=== PATIENT | female | born 1950 | race Caucasian/White ===

== ENCOUNTER 2017-04-20 08:26 | Outpatient (CLI) | payer MEDICARE, BC ==
[2017-04-20 10:33] LABS: #Eosinphils 0.2 thou/uL (0.0-0.7); #Lymphocytes 2.1 thou/uL (1.20-3.40); #Monocytes 0.5 thou/uL (0.11-0.59); #Neutrophils 2.9 thou/uL (1.40-6.50); %Basophils 0.8 % (0.0-1.0); %Eosinophils 3.3 % (0.0-10.0); %Lymphocytes 36.8 % (21.0-51.0); %Monocytes 8.8 % (0.0-10.0); Hematocrit 40.5 % (36.0-47.0); Mean Platelet Volume 7.6 fL (7.4-10.4); Red Blood Cell (RBC) Count 4.52 mill/uL (4.20-5.40); White Blood Cell (WBC) Count 5.7 thou/uL (4.8-10.8)
[2017-04-20 10:41] LABS: PTT 29.9 SEC (22.9-36.1); Prothrombin Time 12.5 SEC (12.0-14.7)
[2017-04-20 10:46] LABS: Anion Gap 12 mmol/L (10-20); BUN (Urea Nitrogen) 14 mg/dL (9.8-20.1); Calc. Creatinine Clearance 0 mL/min (70-130); Calcium 10.3 mg/dL (7.8-10.44); Carbon Dioxide 31 mmol/L (23-31); Chloride 98 mmol/L (98-107); Estimated GFR-MDRD 68
[2017-04-20 13:30] LABS: Bilirubin Negative (Negative); Blood, Urine Negative (Negative); Glucose, Urine (Dipstick) Negative (Negative); Ketone, Urine Negative (Negative); Nitrite Negative (Negative); Protein, Urine (Dipstick) Negative (Neg-Trace); Urobilinogen 0.2 mg/dL (0.2-1.0)
[2017-04-20 13:33] LABS: Bacteria/HPF None Seen HPF (None Seen); Hyaline Casts/LPF 0-3 HYALINE CAST LPF (0-3 Hyaline); RBC/HPF 0-3 HPF (0-3); Squamous Epithelial 0-3 HPF (0-3); WBC/HPF 0-3 HPF (0-3)
--- NOTE | 2017-04-20 14:37 | RAD ---
PA AND LATERAL CHEST: Date: 04-20-17 History: Pre-operative evaluation. Comparison: 06-10-10 FINDINGS: Cardiac silhouette and pulmonary vasculature are within normal limits. Lungs are clear. Vascular tanisha cifications are seen in a tortuous thoracic aorta. There is mild right convex scoliosis of the thora cic spine with degenerative changes in the thoracic spine. A left glenohumeral prosthesis is present . No other interval change. IMPRESSION: No acute cardiopulmonary process. POS: [facility]
--- NOTE | 2017-04-20 15:04 | EKG ---
Test Reason : Blood Pressure : / mmHG Vent. Rate : 082 BPM Atrial Rate : 082 BPM P-R Int : 166 ms QRS Dur : 086 ms QT Int : 364 ms P-R-T Axes : 076 023 072 degrees QTc Int : 425 ms Normal sinus rhythm Cannot exclude Inferior infarct , age undetermined Abnormal ECG Confirmed by DEO MCINTYRE ([id number]) on 04/20/2017 3:03:28 PM Referred By: SIRIA STOVALL Confirmed By:DEO MCINTYRE
== END 2017-04-20 08:27 | disposition home or self-care (01) ==
LOC: LABBT 08:26
PROVIDERS: ATTEND Orthopaedic Surgery
DX: Z01.818 Encounter for other preprocedural examination (principal); M16.11 Unilateral primary osteoarthritis, right hip
CPT/HCPCS: 71020; 80048; 81001; 85025; 85610; 85730; 86850; 86900; 86901; 87081; 93005; 93010

== ENCOUNTER 2017-04-20 08:30 | Inpatient (IN) | payer MEDICARE, BC ==
[2017-04-20 08:45] VITALS: BMI 34.2
[2017-04-20 10:33] LABS: #Eosinphils 0.2 thou/uL (0.0-0.7); #Lymphocytes 2.1 thou/uL (1.20-3.40); #Monocytes 0.5 thou/uL (0.11-0.59); #Neutrophils 2.9 thou/uL (1.40-6.50); %Basophils 0.8 % (0.0-1.0); %Eosinophils 3.3 % (0.0-10.0); %Lymphocytes 36.8 % (21.0-51.0); %Monocytes 8.8 % (0.0-10.0); Hematocrit 40.5 % (36.0-47.0); Mean Platelet Volume 7.6 fL (7.4-10.4); Red Blood Cell (RBC) Count 4.52 mill/uL (4.20-5.40); White Blood Cell (WBC) Count 5.7 thou/uL (4.8-10.8)
[2017-04-20 10:41] LABS: PTT 29.9 SEC (22.9-36.1); Prothrombin Time 12.5 SEC (12.0-14.7)
[2017-04-20 10:46] LABS: Anion Gap 12 mmol/L (10-20); BUN (Urea Nitrogen) 14 mg/dL (9.8-20.1); Calc. Creatinine Clearance 0 mL/min (70-130); Calcium 10.3 mg/dL (7.8-10.44); Carbon Dioxide 31 mmol/L (23-31); Chloride 98 mmol/L (98-107); Estimated GFR-MDRD 68
[2017-04-20 13:30] LABS: Bilirubin Negative (Negative); Blood, Urine Negative (Negative); Glucose, Urine (Dipstick) Negative (Negative); Ketone, Urine Negative (Negative); Nitrite Negative (Negative); Protein, Urine (Dipstick) Negative (Neg-Trace); Urobilinogen 0.2 mg/dL (0.2-1.0)
[2017-04-20 13:33] LABS: Bacteria/HPF None Seen HPF (None Seen); Hyaline Casts/LPF 0-3 HYALINE CAST LPF (0-3 Hyaline); RBC/HPF 0-3 HPF (0-3); Squamous Epithelial 0-3 HPF (0-3); WBC/HPF 0-3 HPF (0-3)
[2017-04-27] MEDS ORDERED: HYDROcodone/Acetaminophen 10/325 mg Tablet PO PRN ×2 (06:57)
[2017-04-27] MEDS ORDERED: Promethazine HCl 25 MG/ML VIAL IM PRN ×2 (06:57→08:45)
[2017-04-27] MEDS ORDERED: Zolpidem Tartrate 5 MG TAB PO PRN ×2 (06:57→08:45)
[2017-04-27] MEDS ORDERED: diphenhydrAMINE 25 MG CAP PO PRN ×3 (06:57→08:45)
[2017-04-27] MEDS ORDERED: traMADol HCl 50 MG TAB PO PRN ×3 (06:57→08:45)
[2017-04-27] MEDS ORDERED: Acetaminophen 325 MG TAB PO PRN (06:57)
[2017-04-27] MEDS ORDERED: Ondansetron HCl/PF 4 MG/2 ML Vial IVP PRN ×2 (06:57→08:45)
[2017-04-27] MEDS ORDERED: Fentanyl 100 MCG/2 ML VIAL SLOW IVP PRN ×2 (06:57)
[2017-04-27] MEDS ORDERED: TRANEXAMIC ACID IVPB SCH (07:00)
[2017-04-27] MEDS ORDERED: ADMIXTURE FEE IVPB SCH (07:00)
[2017-04-27] MEDS ORDERED: SODIUM CHLORIDE IVPB SCH (07:00)
[2017-04-27] MEDS ORDERED: Tranexamic Acid 1,000 MG/100 ML BAG ONE ×2 (07:11→13:46)
[2017-04-27] MEDS ORDERED: Eucerin (Mineral Oil/Petrolatum,White) 30 gm Jar TOP PRN (08:45)
[2017-04-27] MEDS ORDERED: Naloxone HCl 0.4 mg/ml Vial IVP PRN (08:45)
[2017-04-27] MEDS ORDERED: diphenhydrAMINE 50 MG/ML VIAL IVP PRN (08:45)
[2017-04-27] MEDS ORDERED: HYDROcodone/Acetaminophen 5/325 mg Tablet PO PRN (08:45)
[2017-04-27] MEDS ORDERED: diphenhydrAMINE 50 MG/ML VIAL IM PRN (08:45)
[2017-04-27] MEDS ORDERED: Naloxone HCl 0.4 mg/ml Vial IV PRN (08:45)
[2017-04-27] MEDS ORDERED: Bupivacaine 0.25% 10 ML VIAL EPIDURAL PRN (08:45)
[2017-04-27] MEDS ORDERED: Fentanyl/Bupivacaine 250 ML in Premix Bag 1 BAG EPIDURAL SCH (08:45)
[2017-04-27] MEDS ORDERED: Promethazine HCl 25 MG SUPP PR PRN (08:45)
[2017-04-27] MEDS ORDERED: Ketorolac Tromethamine 30 MG/ML VIAL IVP PRN (08:45)
[2017-04-27] MEDS ORDERED: Ropivacaine 0.2% HCl/PF 20 ML ONE (08:55)
[2017-04-27] MEDS ORDERED: Fentanyl 100 MCG/2 ML VIAL ONE (08:55)
[2017-04-27] MEDS ORDERED: Midazolam HCl 2 mg/2 ml Vial ONE (08:55)
[2017-04-27] MEDS ORDERED: Non-Formulary Item 1 EACH (Omeprazole [Omeprazole] 20 MG) PO SCH (09:00)
[2017-04-27] MEDS ORDERED: Glimepiride 2 MG TAB PO SCH (09:00)
[2017-04-27] MEDS ORDERED: Hydrochlorothiazide 25 MG TAB PO SCH (09:00)
[2017-04-27] MEDS ORDERED: Ondansetron HCl/PF 4 MG/2 ML Vial ONE (09:10)
[2017-04-27] MEDS ORDERED: Lidocaine 2% PF 10 ML AMP (For Epidural Use) ONE (09:10)
[2017-04-27] MEDS ORDERED: Propofol 200 MG/20 ML VIAL ONE (09:10)
[2017-04-27] MEDS ORDERED: PHENYLEPHRINE-NS 100 MCG/ML 10 ML SYRINGE ONE ×2 (09:10→11:34)
[2017-04-27] MEDS ORDERED: Dexamethasone 20 MG/5 ML VIAL ONE (09:10)
[2017-04-27 11:14] LABS: Hematocrit 31.2 % (36.0-47.0)
[2017-04-27] MEDS ORDERED: Tranexamic Acid 1,000 MG in Sodium Chloride 0.9% 100 ML IVPB SCH (11:30)
--- NOTE | 2017-04-27 12:06 | OP ---
DATE OF PROCEDURE: 04/27/2017 PREOPERATIVE DIAGNOSIS: End-stage bicompartmental osteoarthritis, right hip. POSTOPERATIVE DIAGNOSIS: End-stage bicompartmental osteoarthritis, right hip. PROCEDURE: Press-Fit right total hip arthroplasty. SURGEON: Jimbo Singer M.D. INDUSTRIAL ARTS TEACHER: Moustapha Bird PA-C. ANESTHESIA: General via endotracheal tube augmented with indwelling epidural. COMPONENTS USED: [facility], Accolade press fit size 2 hip stem with a 48 mm press fit buzz tabular shell, 36 mm 0 degree polyethylene fixed bearing insert and a 36 mm V40 -5 offset metallic f emoral head. ESTIMATED BLOOD LOSS: 600 mL FINDINGS: End-stage severe degenerative bicompartmental disease, bone on bone arthrosis, periarticu lar osteophyte formation, a lot of serous effusions. DRAINS: None. SPECIMENS: None. COMPLICATIONS: None. COUNTS: Correct. INDICATIONS FOR SURGERY: Shirley is a 66-year-old white female who has had progressive right hip, baron in and thigh pain amplified with standing and walking for the last 5 cm, she has failed conservative management and elected to proceed with total hip arthroplasty as a definitive treatment to her pain . PROCEDURE IN DETAIL: After informed consent was obtained in the preoperative holding area, the ghanshyam ent was taken to the operative suite where general anesthesia was induced. The patient was then pos itioned in the lateral decubitus position. The hip was then prepped and draped in usual sterile fas hion. The patient received preoperative antibiotics. Prior to incision, time-out was called and al l members of the surgical team agreed upon site, surgeon, and patient. After this, a longitudinal i ncision was made directly over the trochanter, noted by palpation extending 2 fingerbreadths above a nd below the trochanter. The deeper subcutaneous layer was undermined with Bovie electrocautery. T he iliotibial band was encountered and incised sharply and the plane below this was developed bluntl y. A Charnley retractor was placed to hold this opened. The lateral aspect of the trochanter and t he abductor muscles were encountered and then reflected anteriorly off the trochanter using Bovie el ectrocautery. Once this was completed, the anterior capsule was then encountered and identified and copious capsulotomy was carried out, exposing the femoral neck and head. Dislocation maneuver was t hen performed and an in situ provisional neck cut was then made using the oscillating saw. Attentio n was then turned to acetabular preparation and sequential reaming was carried out up to the appropr iate diameter and a trial was then malleted into place with good firm resistance and no pullout. Th e permanent acetabular shell was then malleted squarely into place, as was the appropriate liner. O nce completed, the wound was copiously irrigated and attention was then turned to femoral preparatio n. Flexion and external rotation was performed of the exposed thigh and femoral elevators were then placed at the proximal aspect of the wound. Canal finder was used to establish the length of the ca nal and sequential reaming was carried out, followed by broaching. Once the appropriate stability w as established with the trial broaches with both flexion, extension and rotational stability, we did trial with neutral and 2 mm offset incremental necks. Once the appropriate size was decided upon, with good stability noted with flexion, extension, internal and external rotation and shuck being ne gative, we removed the femoral trial broach and malletted into place the permanent prosthesis with g ood firm fit, which was also stable to rotation. Again, the hip felt very stable to flexion, extens ion, internal and external rotation. Leg lengths appeared near anatomic clinically and we were quit e happy with prosthesis placement. Copious irrigation was then carried out through the entirety of the wound. Primary closure of the abductors was accomplished with interrupted #2 Vicryl figure-of-e ight stitches and the IT band was then closed with interrupted #2 Vicryl, oversewn with a #2 running barbed Quill stitch. Subcutaneous fascia was closed with running barbed Quill stitch and a subcuti cular Monocryl barbed Quill stitch was used for skin closure and augmented with skin cement. A ster ile dressing was applied. The procedure was terminated without any complication. All counts were co rrect. The patient was awakened in the operative suite and taken to the recovery room in stable con dition.
[2017-04-27] MEDS ORDERED: ePHEDrine/0.9% NaCl/PF SYRINGE 50 mg/10 ml ONE (12:23)
[2017-04-27] MEDS ORDERED: Fentanyl/Bupivacaine 250 ML EPIDURAL ONE (13:04)
--- NOTE | 2017-04-27 13:06 | RAD ---
2 VIEWS OF THE RIGHT HIP: Date: 04/27/17 INDICATION: Right total hip replacement. COMPARISON: None. FINDINGS: There is a right total hip prosthesis that projects in the expected position without gross evidence of complication. There is scattered periarticular soft tissue gas consistent with patient's recent p ostop state. Surgical clips are seen within the right inguinal region, likely related to prior vascu lar surgery. IMPRESSION: Right total hip arthroplasty. POS: [facility]
[2017-04-27 14:17] LABS: Hematocrit 28.5 % (36.0-47.0)
[2017-04-27] MEDS ORDERED: Calcium Chloride 1 GM/10 ML Abboject SYRINGE ONE (16:13)
[2017-04-27] MEDS ORDERED: CEFAZOLIN/Water 2 GM/20 ML SYRINGE ONE (17:06)
[2017-04-27] MEDS ORDERED: Ketorolac Tromethamine 30 MG/ML VIAL ONE (17:12)
[2017-04-27] MEDS: Sodium Chloride 0.9% 1,000 ML IV SCH ×2 (18:16→21:32)
[2017-04-27 18:33] LABS: Hematocrit 33.4 % (36.0-47.0)
[2017-04-27] MEDS: HYDROcodone/Acetaminophen 5/325 mg Tablet PO PRN (19:09)
[2017-04-27] MEDS ORDERED: METFORMIN HCL PO SCH (21:00)
[2017-04-27] MEDS: Aspirin 325 MG TAB PO SCH (21:24)
[2017-04-27] MEDS: Ferrous Gluconate 324 MG TAB PO SCH (21:25)
[2017-04-27] MEDS: Senokot S 8.6-50 MG TAB PO SCH (21:25)
[2017-04-27] MEDS: metFORMIN XR 500 MG TAB PO SCH (21:26)
[2017-04-28] MEDS: CEFAZOLIN/Water 2 GM/20 ML SYRINGE SLOW IVP SCH ×3 (01:15→08:22)
[2017-04-28] MEDS: HYDROcodone/Acetaminophen 5/325 mg Tablet PO PRN ×4 (01:19→20:23)
[2017-04-28] MEDS: Sodium Chloride 0.9% 1,000 ML IV SCH ×3 (04:15→21:54)
[2017-04-28 06:50] LABS: Hematocrit 28.7 % (36.0-47.0); Mean Platelet Volume 7.7 fL (7.4-10.4); Red Blood Cell (RBC) Count 3.14 mill/uL (4.20-5.40); White Blood Cell (WBC) Count 7.7 thou/uL (4.8-10.8)
[2017-04-28] MEDS: Multivitamin W/ Minerals 1 TAB PO SCH ×2 (08:18→08:21)
[2017-04-28] MEDS: Senokot S 8.6-50 MG TAB PO SCH ×3 (08:18→20:19)
[2017-04-28] MEDS: Aspirin 325 MG TAB PO SCH ×3 (08:18→20:18)
[2017-04-28] MEDS: Ferrous Gluconate 324 MG TAB PO SCH ×3 (08:18→20:18)
[2017-04-28] MEDS: Hydrochlorothiazide 25 MG TAB PO SCH ×2 (08:19→09:00)
[2017-04-28] MEDS: Glimepiride 2 MG TAB PO SCH ×2 (08:19→08:21)
[2017-04-28] MEDS: metFORMIN XR 500 MG TAB PO SCH (20:18)
[2017-04-29] MEDS: HYDROcodone/Acetaminophen 5/325 mg Tablet PO PRN (06:28)
[2017-04-29 06:40] LABS: Hematocrit 28.5 % (36.0-47.0); Mean Platelet Volume 7.5 fL (7.4-10.4); Red Blood Cell (RBC) Count 3.11 mill/uL (4.20-5.40); White Blood Cell (WBC) Count 6.3 thou/uL (4.8-10.8)
[2017-04-29] MEDS: Ferrous Gluconate 324 MG TAB PO SCH ×2 (08:13→20:52)
[2017-04-29] MEDS: Hydrochlorothiazide 25 MG TAB PO SCH (08:13)
[2017-04-29] MEDS: Multivitamin W/ Minerals 1 TAB PO SCH (08:13)
[2017-04-29] MEDS: Senokot S 8.6-50 MG TAB PO SCH ×3 (08:13→20:52)
[2017-04-29] MEDS: Glimepiride 2 MG TAB PO SCH (08:13)
[2017-04-29] MEDS: Aspirin 325 MG TAB PO SCH ×2 (08:13→20:52)
[2017-04-29] MEDS: Sodium Chloride 0.9% 1,000 ML IV SCH ×2 (11:01→17:53)
[2017-04-29] MEDS: Acetaminophen 500 MG TAB PO PRN (12:47)
[2017-04-29] MEDS: metFORMIN XR 500 MG TAB PO SCH (20:52)
[2017-04-30] MEDS: Sodium Chloride 0.9% 1,000 ML IV SCH (04:09)
[2017-04-30 05:24] LABS: Hematocrit 28.4 % (36.0-47.0); Mean Platelet Volume 7.1 fL (7.4-10.4); Red Blood Cell (RBC) Count 3.18 mill/uL (4.20-5.40); White Blood Cell (WBC) Count 7.1 thou/uL (4.8-10.8)
[2017-04-30 07:56] VITALS: BP 145/80
[2017-04-30] MEDS: Aspirin 325 MG TAB PO SCH (08:55)
[2017-04-30] MEDS: Ferrous Gluconate 324 MG TAB PO SCH (08:55)
[2017-04-30] MEDS: Hydrochlorothiazide 25 MG TAB PO SCH (08:55)
[2017-04-30] MEDS: Multivitamin W/ Minerals 1 TAB PO SCH (08:55)
[2017-04-30] MEDS: Glimepiride 2 MG TAB PO SCH (08:58)
[2017-04-30] MEDS: Senokot S 8.6-50 MG TAB PO SCH (08:59)
[2017-04-30] MEDS: Acetaminophen 500 MG TAB PO PRN (09:02)
[2017-04-30 11:50] VITALS: TEMP 98.4
--- NOTE | 2017-05-03 09:47 | PQF ---
SAM CADET BARRY MD [id number] CLINICAL DOCUMENTATION CLARIFICATION FORM: POST DISCHARGE Addendum to original discharge summary date: ____ Late entry note date: __ DATE: 05/03/2017 ATTN: DR. STOVALL Please provide diagnosis for procedure that was done. Please exercise your independent, professional judgment in responding to the clarification form. Clinical indicators are provided on the bottom of this form for your review Please check appropriate box(s): [ ] Acute blood loss anemia [ ] Post-op anemia related to acute blood loss [ ] Anemia: [ ] Aplastic [ ] Nutritional [ ] Drug induced (specify) ___ [ ] Hemolytic [ ] Hereditary [ ] Acquired [ ] Autoimmune [ ] Non-autoimmune [ ] Enzyme disorder [ ] Chronic Anemia: [ ] Blood loss [ ] Hemolytic [ ] Simple [ ] Due to Vitamin B12 Deficiency [ ] Other [ ] Anemia of Chronic Disease (please specify) [ ] Anemia due to Neoplasm: [ ] Primary [ ] Secondary [ ] Anemia due to (please choose): [ ] Due to Chemotherapy [ ] Due to Radiotherapy [ ] Due to Immunotherapy [ ] Other diagnosis [ ] Unable to determine In addition, please specify: Present on Admission (POA): [ ] Yes [ ] No [ ] Unable to determine For continuity of documentation, please document condition throughout progress notes and discharge summary. Thank You. CLINICAL INDICATORS - SIGNS / SYMPTOMS / LABS H&H on 04/27- H&H ON 04/29- RISK FACTORS Total Hip Replacement on 04/27/2017 TREATMENTS: Transfusion of LRPC on 04/27 (This form is maintained as a part of the permanent medical record) 2014 [employer] All Rights Reserved [email or web address] [phone] MTDD
--- NOTE | 2017-05-03 10:51 | DIS ---
DATE OF ADMISSION: 04/27/2017 DATE OF DISCHARGE: 04/30/2017 PREOPERATIVE DIAGNOSES: Right hip osteoarthritis/degenerative joint disease. DISCHARGE DIAGNOSES: Right hip osteoarthritis/degenerative joint disease. PROCEDURE: The patient underwent a right total hip replacement. HOSPITAL COURSE: Hospital stay was fairly unremarkable. By postop day 2, she was a little bit tire d and did not feel so good, so we opted to keep the patient for another day. By postoperative day # 3, she was doing much better and ready for discharge. She had no other complications on the floor a nd again admitted to [address] where she worked with staff, physical therapy, occupat ional therapy, and did overall very well. DISCHARGE CONDITION: Stable. DISPOSITION: Home. FOLLOWUP: Followup would be in 3-4 weeks, sooner if there are problems or concerns. DISCHARGE MEDICATIONS: Given with usage instructions. This is Osiel Rosales PA-C dictating for Jimbo Singer M.D.
== END 2017-04-30 11:01 | disposition home or self-care (01) | DRG 470 ==
LOC: SURG A 04-27 06:25 → SJJU 04-27 12:59
PROVIDERS: ADMIT Orthopaedic Surgery; ATTEND Orthopaedic Surgery
PROC: 0SR902A Replacement of Right Hip Joint with Metal on Polyethylene Synthetic Substitute, Uncemented, Open Approach (ICD-10-PCS; principal; 2017-04-27)
PROC: 3E0T3BZ Introduction of Anesthetic Agent into Peripheral Nerves and Plexi, Percutaneous Approach (ICD-10-PCS; 2017-04-27)
PROC: 30233N1 Transfusion of Nonautologous Red Blood Cells into Peripheral Vein, Percutaneous Approach (ICD-10-PCS; 2017-04-27)
DX: M16.11 Unilateral primary osteoarthritis, right hip (principal); J44.9 Chronic obstructive pulmonary disease, unspecified; Z96.642 Presence of left artificial hip joint; I10 Essential (primary) hypertension; Z79.84 Long term (current) use of oral hypoglycemic drugs; E78.5 Hyperlipidemia, unspecified; K21.9 Gastro-esophageal reflux disease without esophagitis; Z87.891 Personal history of nicotine dependence; K58.9 Irritable bowel syndrome, unspecified; Z96.612 Presence of left artificial shoulder joint; Z96.651 Presence of right artificial knee joint; E11.9 Type 2 diabetes mellitus without complications
CPT/HCPCS: 36415; 36416; 80048; 81001; 85014; 85018; 85025; 85027; 85610; 85730; 86850; 86900; 86901; 87081; C1776; G8978-GP-CJ; G8979-GP-CI; G8987-GO-CK; G8988-GO-CI; J1100; J1885; J2001; J2250; J2405; J2704; J2795; J3010; J3370; P9016

== ENCOUNTER 2017-06-07 13:08 | Outpatient (CLI) | payer MEDICARE, BC ==
--- NOTE | 2017-06-07 15:36 | RAD ---
FIVE VIEWS CERVICAL SPINE: Indication: Cervical radiculopathy. Comparison: 02-23-17 FINDINGS: The severe multilevel disc degenerative facet osteoarthritic change of the cervical spine is stable. There is slight anterior translation of C2 on C3, C3 on C4, and C4 on C5 which is similar appearing. No abnormal translational motion is grossly evident. Lateral masses are symmetric. Lung apices are cl ear. IMPRESSION: Severe multilevel spondylosis of the cervical spine is stable to the prior. POS: [facility]
--- NOTE | 2017-06-07 15:52 | CT ---
CT OF THE CERVICAL SPINE WITHOUT CONTRAST: Indication: Cervical radiculopathy with inability to move neck since April 2017. Comparison: None. FINDINGS: The lateral masses are symmetric. There is slight anterior translation of C2 on C3 and C3 on C4 and C 4 on C5. There is advanced facet osteoarthrosis at C3-4 and C2-3. The lung apices are clear. C2-3: There is no appreciable osseous central canal or neural foraminal narrowing. There is advanced facet osteoarthritic change. C3-4: There is advanced right and moderate to severe left foot osteoarthrosis. There is mild osseous neural foraminal narrowing noted along the right. C4-5: There is severe right and moderate to severe left facet osteoarthritic change. No uncal vertebr al hypertrophy. C5-6: There is moderate to severe bilateral facet osteoarthritic change and uncal vertebral hypertrop hy inducing at least mild bilateral osseous neural foraminal narrowing. C6-7: There is uncal vertebral hypertrophy, facet osteoarthrosis inducing at last mild left osseous n eural foraminal narrowing C7-T1: There is no appreciable central canal neural foraminal narrowing. Prevertebral soft tissues demonstrate some heterogeneity of the thyroid gland. No enlarged lymph node s are evident. IMPRESSION: 1. Severe spondylosis of the cervical spine with slight anterior translation of C2 on C3, C3 on C4, a nd C4 on C5, most likely degenerative in nature. 2. Mild osseous neural foraminal narrowing. POS: [facility]
--- NOTE | 2017-06-07 16:58 | MRI ---
CERVICAL SPINE MRI WITHOUT CONTRAST: Date: 06/07/17 COMPARISON: None. HISTORY: Neck pain, cervical radiculopathy, unable to move neck. TECHNIQUE: Multiplanar, multisequence MR imaging of the cervical spine is provided without contrast. FINDINGS: The sagittal STIR imaging demonstrates at T2 hyperintense lesion within the C3 vertebral body central ly and to the left of midline, hypointense on T2-weighted imaging. It demonstrates no discrete correl ate on recent CT exam. There is anterolisthesis at the C2-3 level measuring in the 2-3 mm range. There is anterolisthesis of C3 on C4 measuring in the 4-5 mm range. There is anterolisthesis of C4 on C5 measuring in the 2-3 mm range. C2-3: Mild disc space narrowing and disc desiccation. No significant central canal or neural foraminal sten osis. C3-4: Disc space narrowing and disc desiccation noted with mild disc bulge. There is mild associated centra l canal stenosis. There is bilateral facet and uncovertebral osteophyte formation, right greater than left, with no left neural foraminal stenosis and moderate/severe right neural foraminal stenosis. C4-5: There is disc space narrowing, disc desiccation, and disc bulge partially effacing the ventral thecal sac and causing a mild degree of central canal stenosis. Bilateral facet and uncovertebral osteophyte formation noted, mild. Mild bilateral neural foraminal s tenosis noted. C5-6: There is disc space narrowing and disc desiccation. Degenerative end plate change is present. There i s bilateral facet and uncovertebral osteophyte formation, mild. There is mild left and moderate right neural foraminal stenosis. C6-7: There is disc space narrowing, disc desiccation, and mild disc bulge with degenerative end plate dick ge and mild bilateral facet/uncovertebral osteophyte formation, left greater than right. Moderate lef t and mild right neural foraminal stenosis noted. C7-T1: Intervertebral disc height and signal intensity is grossly unremarkable. No significant central canal or neural foraminal stenosis. No focal area of abnormal signal intensity is identified within the cervical cord. IMPRESSION: 1. Multilevel degenerative change noted within the cervical spine including multilevel anterior oste ophyte formation, as well as multilevel degenerative disc disease with facet and uncovertebral osteop hyte formation. 2. Nonspecific lesion within the C3 vertebral body. An atypical hemangioma is favored. A more aggres sive lesion cannot be fully excluded and thus, recommend a follow-up study in [address] ability. POS: [facility]
== END 2017-06-07 13:09 | disposition home or self-care (01) ==
LOC: TBSIIMAG 13:08
PROVIDERS: ATTEND Surgery
DX: M47.22 Other spondylosis with radiculopathy, cervical region (principal); M48.02 Spinal stenosis, cervical region
CPT/HCPCS: 72050; 72125; 72141

== ENCOUNTER 2018-07-06 10:14 | Outpatient (CLI) | payer MEDICARE, BC | END 2018-07-06 10:15 | disposition home or self-care (01) | LOC: BICMAMMO 10:14 | PROVIDERS: ATTEND Family Medicine | DX: Z12.31 Encounter for screening mammogram for malignant neoplasm of breast (principal); Z80.3 Family history of malignant neoplasm of breast | CPT/HCPCS: 77063; 77067 ==

== ENCOUNTER 2019-01-16 09:53 | Outpatient (CLI) | payer MEDICARE, BC ==
--- NOTE | 2019-01-16 12:35 | CT ---
CT CHEST NONCONTRAST LOW DOSE PULMONARY SCREENING CT EXAM: CLINICAL HISTORY: Exertional shortness of breath, COPD. History of prior tobacco use. FINDINGS: There is an abnormal cavitary lesion, with multifocal peripheral nodularity, with maximum diameter of approximately 4.7 cm, immediately adjacent to the bronchovascular bundle of the right lower lobe and just posterior to the right hilar vasculature. There is a lobular morphology of the partially imaged liver. Vascular calcification is present. There are scattered osseous degenerative changes. IMPRESSION: Lung RADS category 4A: Suspicious, findings for which additional diagnostic testing recommended. David mmend 3 month follow-up CT chest for continued evaluation. Transcribed Date/Time: 01/16/2019 1:35 PM
== END 2019-01-16 09:54 | disposition home or self-care (01) ==
LOC: CT 09:53
PROVIDERS: ATTEND Family Medicine
DX: Z87.891 Personal history of nicotine dependence (principal)
CPT/HCPCS: G0297

== ENCOUNTER 2019-02-20 13:49 | Outpatient (CLI) | payer MEDICARE, BC ==
--- NOTE | 2019-02-20 14:32 | CT ---
CT of abdomen and pelvis: 02/20/2019 COMPARISON: None HISTORY: Abnormal hepatic contour seen on recent chest CT TECHNIQUE: Axial CT imaging at 5 mm intervals from lung bases through pubic symphysis without contras t. Coronal reformatted imaging obtained. FINDINGS: Lack of contrast media limits assessment of the viscera, bowel, vascular structures, and fo r lymphadenopathy. There is a partially visualized area of pulmonary parenchymal nodularity within the medial aspect of the right lower lobe which includes 2 pulmonary nodules measuring up to 7 mm. This abnormality is only partially evaluated on this examination. Please refer to chest CT report performed 01/16/2019. No free intraperitoneal air or fluid is seen. There is extensive postoperative hardware within the hi ps bilaterally associated with bilateral hip arthroplasties. There is a lobulated contour involving the anterior aspect of the liver on image 23, not optimally as sessed on noncontrast imaging. Hounsfield units in this area suggest that this is likely simply an anatomic variant. No discrete mass lesion is apparent within the liver in this region. The spleen and gallbladder appear grossly unremarkable. There is a mass within the adrenal gland on t he left measuring 2.3 cm in transverse dimension, with Hounsfield units of approximately 5-10, suggesting a benign adrenal adenoma. Right adrenal gland appears unremarkable. There is a nonspecific exophytic lesion emanating from the upper pole of the left kidney measuring 2. 2 cm with Hounsfield units of approximately 50. There is no hydronephrosis noted on either side. Punctate calcifications in the region of the right hilum suggest vascular calcification. There is a fat-containing umbilical hernia measuring 3.1 cm in AP dimension. There is soft tissue density in the region of the cervix extending below the axial level of the pubic symphysis suggesting pelvic floor relaxation. There is diverticulosis of the descending colon and sigmoid colon with no evidence for diverticulitis . The appendix appears grossly unremarkable. There is no evidence for bowel obstruction. There is exten sive atherosclerotic calcification of the abdominal aorta and its branches. No evidence for obstructive uropathy is noted on either side. Review of the osseous structures demonstrates levoscoliosis at the thoracolumbar junction and extensi ve multilevel degenerative change within the lumbar spine with disc space narrowing, sclerotic endplate change, and facet hypertrophy. IMPRESSION: Nonspecific lesion within the left kidney for which follow-up CT examination of the abdomen is advise d with and without contrast. This could represent a high density cyst or a solid renal mass lesion. Numerous additional incidental findings as detailed above. CODE T. Transcribed Date/Time: 02/20/2019 2:57 PM
== END 2019-02-20 13:50 | disposition home or self-care (01) ==
LOC: BICCT 13:49
PROVIDERS: ATTEND Family Medicine
DX: R16.0 Hepatomegaly, not elsewhere classified (principal); N28.9 Disorder of kidney and ureter, unspecified
CPT/HCPCS: 74176

== ENCOUNTER 2019-03-01 07:58 | Day surgery (SDC) | payer MEDICARE, BC ==
[2019-02-28 11:57] VITALS: BMI 32.2
[2019-03-01] MEDS ORDERED: Midazolam HCl 2 mg/2 ml Vial ONE (09:40)
[2019-03-01] MEDS ORDERED: Fentanyl 100 MCG/2 ML VIAL ONE (09:40)
[2019-03-01 12:04] LABS: BF Color Pink; Body Fluid Source Bronchial Washings; Clarity Hazy (Clear); Tube # EDTA
[2019-03-01 12:06] LABS: BF RBC Count - Manual 7950 /cumm; BF WBC/Nonhematics Ct. - Manua 71 /cumm
[2019-03-01 12:39] LABS: BF Segmented Neutrophils 4 %; Cell Count Non Hematic 92 %; Lymphocytes 4 %
--- NOTE | 2019-03-01 14:40 | OP ---
DATE OF PROCEDURE: 03/01/2019 SERVICE: Pulmonary Medicine. PROCEDURE PERFORMED: Fiberoptic bronchoscopy with, 1. Visual airway inspection. 2. Endobronchial brushing of the right lower lobe, superior segment. 3. Bronchoalveolar lavage of the right lower lobe, superior segment. 4. Transbronchial biopsies of the right lower lobe, superior and posterobasal segment. PREPROCEDURE DIAGNOSES: 1. Pulmonary cavity. 2. Bronchiectasis. POSTPROCEDURE DIAGNOSES: 1. Pulmonary cavity. 2. Bronchiectasis. MEDICATIONS USED: For list of medications, please refer to Anesthesia documentation. PREANESTHESIA ASSESSMENT: H and P had been performed. The patient's medications and allergies were reviewed. Informed consent was obtained after discussing the risks, benefits, and rationale for performing the procedure as well as well as alternative options. DESCRIPTION OF PROCEDURE: A time-out was performed, identifying the correct procedure and the patient with name and date of . A diagnostic fiberoptic bronchoscope was introduced through the 8.0 endotracheal tube. The bronchoscope was advanced into the trachea, where a tracheobronchial tree inspection was carried out. The superior segment of the right upper lobe came off the trachea. Otherwise, anatomy was normal to the segmental level. There was clear identification of the right upper lobe, right middle lobe, right lower lobe, left upper lobe, lingula, and left lower lobe. Endobronchial brushings were obtained from the superior segment of the right lower lobe. Bronchoalveolar alveolar lavage was subsequently obtained from the same location. Under fluoroscopic guidance, transbronchial biopsies were obtained from both the superior segment, and the posterobasal segment of the right lower lobe guided by fluoroscopy. Hemostasis was verified and the bronchoscope was subsequently removed from the patient. Postprocedure fluoroscopy did not demonstrate a pneumothorax. FINDINGS: 1. Secretions were minimal and slightly yellow tinged. 2. No obvious endobronchial disease was identified. 3. The mucosal surfaces throughout the dependent regions of the lung were quite friable. SPECIMENS: 1. Pathology on BAL, brushing, and transbronchial biopsies from 2 separate segments of the right lower lobe. 2. Microbiology on the BAL. COMPLICATIONS: None. ESTIMATED BLOOD LOSS: 5 mL. FLUOROSCOPY TIME: 2 minutes 20 seconds. DISPOSITION: The patient will be discharged home when she meets postprocedure instructions. She will return to clinic next week as previously directed. Job ID: [id number]
[2019-03-01] MEDS ORDERED: Rocuronium Bromide 10 MG/ML (10ML VIAL) ONE (16:33)
[2019-03-01] MEDS ORDERED: Lidocaine 1% PF 5 ML VIAL ONE (16:33)
[2019-03-01] MEDS ORDERED: PROPOFOL 200 MG/20 ML VIAL ONE (16:33)
[2019-03-07 18:08] LABS: Fungus Stain Final report (.)
== END 2019-03-01 12:20 | disposition home or self-care (01) ==
LOC: SDC 07:58
PROVIDERS: ATTEND Internal Medicine
PROC: 0BDF8ZX Extraction of Right Lower Lung Lobe, Via Natural or Artificial Opening Endoscopic, Diagnostic (ICD-10-PCS; principal; 2019-03-01)
PROC: 0B9F8ZX Drainage of Right Lower Lung Lobe, Via Natural or Artificial Opening Endoscopic, Diagnostic (ICD-10-PCS; 2019-03-01)
PROC: 0BDF8ZX Extraction of Right Lower Lung Lobe, Via Natural or Artificial Opening Endoscopic, Diagnostic (ICD-10-PCS; 2019-03-01)
DX: J47.9 Bronchiectasis, uncomplicated (principal); J98.09 Other diseases of bronchus, not elsewhere classified; I10 Essential (primary) hypertension; E11.9 Type 2 diabetes mellitus without complications; E78.5 Hyperlipidemia, unspecified; K21.9 Gastro-esophageal reflux disease without esophagitis; M19.90 Unspecified osteoarthritis, unspecified site; Z79.82 Long term (current) use of aspirin; Z79.84 Long term (current) use of oral hypoglycemic drugs; Z79.899 Other long term (current) drug therapy; Z87.891 Personal history of nicotine dependence
CPT/HCPCS: 76000; 85060; 87070; 87102; 87116; 87205; 87206; 88112; 88305; 88312; 89051; J2001; J2250; J2704; J3010

== ENCOUNTER 2019-05-01 08:47 | Outpatient (CLI) | payer MEDICARE, BC ==
[2019-05-01] MEDS ORDERED: ISOVUE-370 76%-LOCM 1 ML ONE (12:20)
--- NOTE | 2019-05-01 12:27 | CT ---
CT chest with contrast CT Abdomen Pelvis W WO con History: Mass of left kidney. N 28.89 Comparison: CT abdomen and pelvis February 2019 Findings: The cavitary focus within the peripheral aspect right lower lobe is relatively similar alth ough at the caudal most portion there is a solid component measuring 11 mm, previously 8 mm, seen on axial image 62. Remainder the lungs are clear. No pneumothorax. No effusion. Multiple hypodensities of the thyroid first nonemergent ultrasound can be performed if clinically war ranted. Severe degenerative disease of the right shoulder. Left shoulder arthroplasty. The left adrenal gland there is a lobular mass measuring up to 3 cm size with absolute washout of 83% and relative washout of 73.3%, consistent with an adenoma. There is no significant enhancement of the left exophytic hyperdense mass suggesting a proteinaceous/ hemorrhagic cyst which measures up to 2 cm. Small fat-containing umbilical hernia. No other abnormal enhancing renal mass. There is unremarkable as well as the gallbladder. Pancreas is unremarkable as well as the spleen. Bilateral hip arthroplasties are in place. Advanced degenerative disc space disease throughout the segundo mbar spine as well as facet arthropathy. Peripherally calcified posterior disc osteophyte complex at T11/T12 narrows the spinal canal to approximately 8 mm. Multilevel neural foraminal narrowing thro ughout the lumbar spine due to disc osteophyte complexes. There is atrophy of the right iliopsoas and psoas muscle with neurogenic in nature. Impression: 1. No significant enhancement of the left renal mass is a hyperdense/hemorrhagic cyst. 2. Increased solid component of the cavitary mass right lower lobe suggesting neoplasm as well as of previous concern. Bronchoscopy is warranted. Given its solid component at the caudal-most edge now measures approximately 11 mm, PET/CT may be beneficial. 3. Multiple hypodensities in the thyroid for which nonemergent ultrasound recommended. 4. Left adrenal adenoma.
== END 2019-05-01 08:48 | disposition home or self-care (01) ==
LOC: BICCT 08:47
PROVIDERS: ATTEND Internal Medicine
DX: N28.89 Other specified disorders of kidney and ureter (principal); R91.8 Other nonspecific abnormal finding of lung field; D35.02 Benign neoplasm of left adrenal gland; E07.89 Other specified disorders of thyroid
CPT/HCPCS: 71260; 74178; 82565; Q9966

== ENCOUNTER 2019-05-05 08:48 | Outpatient (CLI) | payer MEDICARE, BC ==
--- NOTE | 2019-05-08 11:30 | EKG ---
Test Reason : Blood Pressure : / mmHG Vent. Rate : 076 BPM Atrial Rate : 076 BPM P-R Int : 170 ms QRS Dur : 088 ms QT Int : 362 ms P-R-T Axes : 073 025 069 degrees QTc Int : 407 ms Normal sinus rhythm Inferior infarct , age undetermined cannot be excluded Abnormal ECG Confirmed by DEO MCINTYRE ([id number]) on 05/08/2019 11:29:55 AM Referred By: DAVEY Confirmed By:DEO MCINTYRE
== END 2019-05-05 08:49 | disposition home or self-care (01) ==
LOC: LABBT 08:48
PROVIDERS: ATTEND Urology
DX: Z01.818 Encounter for other preprocedural examination (principal); D49.4 Neoplasm of unspecified behavior of bladder
CPT/HCPCS: 93005; 93010

== ENCOUNTER 2019-05-05 09:00 | Observation (INO) | payer MEDICARE, BC ==
[2019-05-05 09:05] VITALS: BMI 33.4
[2019-05-05 10:18] LABS: Hemoglobin 11.9 g/dL (12.0-16.0); Mean Corpuscular HGB CONC 32.9 g/dL (32.0-36.0); Mean Corpuscular Hemoglobin 27.6 pg (27.0-31.0); Mean Platelet Volume 7.8 fL (7.4-10.4); Platelet Count 327 thou/uL (130-400); Red Blood Cell (RBC) Count 4.32 mill/uL (4.20-5.40); White Blood Cell (WBC) Count 6.8 thou/uL (4.8-10.8)
[2019-05-05 10:22] LABS: Bilirubin Negative (Negative); Blood, Urine 3+ (Negative); Clarity Clear (Clear); Glucose, Urine (Dipstick) Normal (Negative); Leukocyte 75 Leu/uL (Negative); Nitrite Negative (Negative); Protein, Urine (Dipstick) Negative (Neg-Trace); RBC/HPF Greater than 50 HPF (0-3); Squamous Epithelial 0-3 HPF (0-3); Transitional Epithelial 0-3 HPF (None Seen); Urobilinogen Normal mg/dL (Less than 2)
[2019-05-05 10:25] LABS: Bacteria/HPF 1+ HPF (None Seen)
[2019-05-05 10:29] LABS: INR-International Normal Ratio 0.9; Prothrombin Time 12.5 SEC (12.0-14.7)
[2019-05-05 10:36] LABS: Anion Gap 16 mmol/L (10-20); BUN (Urea Nitrogen) 24 mg/dL (9.8-20.1); Calc. Creatinine Clearance 0 mL/min (70-130); Calcium 9.6 mg/dL (7.8-10.44); Carbon Dioxide 27 mmol/L (23-31); Chloride 95 mmol/L (98-107); Estimated GFR-MDRD 58; Glucose 151 mg/dL (80-115); Potassium 4.8 mmol/L (3.5-5.1); Sodium 133 mmol/L (136-145)
[2019-05-09] MEDS ORDERED: Levofloxacin 500 mg/D5W 100 ml Premix Bag ONE (09:59)
[2019-05-09] MEDS ORDERED: Iothalamate Meglumine 60% 50 ML VIAL FS ONE (11:22)
[2019-05-09] MEDS ORDERED: mitoMYcin 40 MG in Sterile Water 20 ML I-VESIC SCH (11:45)
[2019-05-09] MEDS ORDERED: Midazolam HCl 2 mg/2 ml Vial ONE (11:46)
[2019-05-09] MEDS ORDERED: Fentanyl 100 MCG/2 ML VIAL ONE (11:47)
[2019-05-09] MEDS ORDERED: Ondansetron PF 4 MG/2 ML Vial ONE (12:52)
[2019-05-09] MEDS ORDERED: PROPOFOL 200 MG/20 ML VIAL ONE (12:52)
--- NOTE | 2019-05-09 13:47 | OP ---
DATE OF PROCEDURE: 05/09/2019 PREOPERATIVE DIAGNOSIS: Bladder tumors. POSTOPERATIVE DIAGNOSES: Large bladder tumor, posterior wall; medium bladder tumor, right wall; small bladder tumor, trigone. PROCEDURES PERFORMED: Transurethral resection of large bladder tumor, retrograde pyelogram, mitomycin instillation. ANESTHESIA: General. COMPLICATIONS: None. SPECIMEN: Bladder tumors as described above. ESTIMATED BLOOD LOSS: 50 mL. DESCRIPTION OF PROCEDURE: After informed consent, the patient was taken to the operating room, transferred to the table and her own power. Anesthesia was established. A time-out was performed, ensuring the correct patient, site, and procedure. Preoperative antibiotics were administered. She was prepped and draped in the lithotomy position. I performed a bimanual exam noting no wall fixation of the bladder or abnormalities in the pelvis. She does have grade 2 apical prolapse. The rigid cystoscope was advanced through the urethra into the bladder. The bladder was systematically examined with both 30-degree and 70-degree lenses. I noted a small tumor on the trigone, medium tumor on the right wall, and a large tumor arising from the right side of the posterior wall. A Pollack catheter was utilized to perform bilateral retrograde pyelograms, noting no abnormalities of the ureters or renal pelvis. I then removed the scope and switched to the resectoscope. Using the resection loop, I removed each tumor in succession and passed each of these off separately. The base of each was cauterized. At completion, the bladder was drained and partially filled noting no active bleeding. There was no evidence of bladder perforation. There were no remaining tumors or mucosal abnormalities. I then removed the scope and placed a 20-Albanian Reyes catheter with 10 mL instilled in the balloon. 40 mg of mitomycin and 20 mL of sterile water were instilled into the bladder through the catheter, which was then plugged. At this point, the procedure was completed. She was brought down from the lithotomy position, awoken from anesthesia, transferred back to her hospital bed and taken to PACU in stable condition, where she will be admitted overnight. Job ID: [id number]
[2019-05-09] MEDS ORDERED: Oxybutynin 5 MG TAB ONE (13:49)
[2019-05-09] MEDS ORDERED: Morphine 4 MG/ML VIAL SLOW IVP PRN (13:50)
[2019-05-09] MEDS ORDERED: HYDROcodone/Acetaminophen 5/325 mg Tablet PO PRN (13:50)
[2019-05-09] MEDS ORDERED: diphenhydrAMINE 50 MG/ML VIAL IVP PRN (13:50)
[2019-05-09] MEDS ORDERED: Ondansetron PF 4 MG/2 ML Vial IVP PRN (13:50)
[2019-05-09] MEDS ORDERED: Phenazopyridine HCl 97.5 MG TABLET PO PRN (13:50)
[2019-05-09] MEDS: Oxybutynin 5 MG TAB PO SCH ×2 (13:58→21:12)
[2019-05-09] MEDS: Sodium Chloride 0.9% 1,000 ML IV SCH ×2 (18:10→23:16)
[2019-05-09] MEDS: Hyoscyamine Sulfate SL 0.125 mg Tablet SL SCH ×2 (18:57→23:14)
[2019-05-09] MEDS: Ketorolac Tromethamine 30 MG/ML VIAL IVP SCH ×2 (18:57→23:15)
[2019-05-10] MEDS: Oxybutynin 5 MG TAB PO SCH (05:39)
[2019-05-10] MEDS: Ketorolac Tromethamine 30 MG/ML VIAL IVP SCH ×2 (05:45→11:59)
[2019-05-10] MEDS: Hyoscyamine Sulfate SL 0.125 mg Tablet SL SCH ×2 (05:45→10:06)
[2019-05-10] MEDS ORDERED: Hydrochlorothiazide 25 MG TAB PO SCH (09:00)
[2019-05-10] MEDS ORDERED: Aspirin 81 mg Enteric Coated Tablet PO SCH (09:00)
[2019-05-10] MEDS ORDERED: Glimepiride 2 MG TAB PO SCH (09:00)
[2019-05-10 12:21] VITALS: BP 145/80; TEMP 98.3
--- NOTE | 2019-05-11 07:33 | DIS ---
DATE OF ADMISSION: 05/09/2019 DATE OF DISCHARGE: 05/10/2019 CHIEF COMPLAINT: Bladder tumor. PROCEDURE: Transurethral resection of multiple bladder tumors with retrograde pyelograms. HOSPITAL COURSE: The patient underwent an uncomplicated transurethral resection of 3 bladder tumors. There were no surgical complications. She was monitored overnight afterwards with Reyes catheter, but did not require continuous irrigation. The following morning, she was having no discomfort and was tolerating oral diet. She was deemed stable for discharge home at that point. DISCHARGE MEDICATIONS: Resume home medications with the addition of; 1. Bactrim. 2. Oxybutynin. 3. Tramadol. CONDITION AT DISCHARGE: Stable. PLAN: Follow up Wednesday morning for catheter removal and discussion of pathology. Job ID: [id number]
== END 2019-05-10 14:45 | disposition home or self-care (01) ==
LOC: SURG A 05-09 09:11 → INTOOBSV 05-09 09:11 → SURG A 05-09 13:14
PROVIDERS: ADMIT Urology; ATTEND Urology
PROC: 0TBB8ZX Excision of Bladder, Via Natural or Artificial Opening Endoscopic, Diagnostic (ICD-10-PCS; principal; 2019-05-09)
DX: C67.0 Malignant neoplasm of trigone of bladder (principal); C67.2 Malignant neoplasm of lateral wall of bladder; C67.4 Malignant neoplasm of posterior wall of bladder; I10 Essential (primary) hypertension; E11.9 Type 2 diabetes mellitus without complications; E78.5 Hyperlipidemia, unspecified; J44.9 Chronic obstructive pulmonary disease, unspecified; K21.9 Gastro-esophageal reflux disease without esophagitis; M19.90 Unspecified osteoarthritis, unspecified site; Z87.891 Personal history of nicotine dependence; Z79.82 Long term (current) use of aspirin; Z79.84 Long term (current) use of oral hypoglycemic drugs; Z79.899 Other long term (current) drug therapy
CPT/HCPCS: 52240; 76000; 80048; 81001; 85027; 85610; 85730; 86850; 86900; 86901; 87086; 88307; G0378 ×2; 88305; J1956; J2250; J2405; J2704; J3010

== ENCOUNTER 2019-05-25 09:53 | Outpatient (CLI) | payer MEDICARE, BC ==
--- NOTE | 2019-05-25 13:02 | PET ---
EXAM: PET/CT HISTORY: Squamous cell lung cancer TECHNIQUE: PET scanning with CT attenuation correction was performed from the base of the brain to the proximal thighs following the intravenous administration of 12.1 millicuries [id number]. COMPARISON: CT of the thorax dated January 16, [address] the abdomen and pelvis with and without con trast dated May 01, 2019 FINDINGS: Biodistribution:The biodistribution for the exam appears acceptable. Head and neck: There is appropriate background activity within the brain. No hypermetabolic lymphaden opathy or masses identified. Thorax: The cavitary mass lesion involving the right infrahilar region corresponding to patient's kno wn malignancy has a region of intense peripheral hypermetabolic activity with a peak activity of 13.62 and a mean activity at 10.0. No additional hypermetabolic pulmonary nodule or pleural effusion is demonstrated. No hypermetabolic hilar, mediastinal or axillary lymph node is present. There is very slight muscular uptake surrounding the shoulders, right greater than left likely related to musc ular activity. Abdomen and pelvis: There is expected background activity within the GI and systems.Left adrenal a denoma demonstrates no uptake. There is no appreciable uptake involving the hyperdense cystic abnormality involving the superior pole left kidney. No hypermetabolic mass or lymphadenopathy is la dent. There are moderate calcifications involving the abdominal aorta. There is a small hiatal hernia. There is a fat-containing umbilicus hernia. Beam scatter artifact from bilateral hip replacem ent slightly limits visualization of the lower pelvis. No hypermetabolic ascites is present. Osseous structures and skin: No hypermetabolic skin or osseous lesion is identified. IMPRESSION: Abnormal PET/CT 1. The cavitary mass lesion involving the right infrahilar region demonstrates intense peripheral hyp ermetabolic uptake consistent with malignancy. 2. No overt hypermetabolic lymphadenopathy demonstrated within the mediastinum, hilar or axillary reg ions. There is no overt evidence to suggest distant metastatic disease to the abdomen, pelvis, skin or osseous structures.
== END 2019-05-25 09:54 | disposition home or self-care (01) ==
LOC: PET 09:53
PROVIDERS: ATTEND Internal Medicine
DX: C34.90 Malignant neoplasm of unspecified part of unspecified bronchus or lung (principal)
CPT/HCPCS: 78815; A9552

== ENCOUNTER 2019-05-29 09:13 | Outpatient (CLI) | payer MEDICARE, BC ==
[2019-05-29 11:27] LABS: Hemoglobin 12.1 g/dL (12.0-16.0); Mean Corpuscular HGB CONC 32.7 g/dL (32.0-36.0); Mean Corpuscular Hemoglobin 27.2 pg (27.0-31.0); Mean Corpuscular Volume 83.1 fL (78.0-98.0); Mean Platelet Volume 7.3 fL (7.4-10.4); Platelet Count 330 thou/uL (130-400); RBC Distribution Width 14.1 % (11.5-14.5); Red Blood Cell (RBC) Count 4.44 mill/uL (4.20-5.40)
[2019-05-29 11:28] LABS: Bilirubin Negative (Negative); Blood, Urine 2+ (Negative); Clarity Turbid (Clear); Glucose, Urine (Dipstick) Normal (Negative); Leukocyte 500 Leu/uL (Negative); Nitrite Negative (Negative); Protein, Urine (Dipstick) 50 mg/dL (Neg-Trace); RBC/HPF 21-50 HPF (0-3); Squamous Epithelial 0-3 HPF (0-3); Urobilinogen Normal mg/dL (Less than 2); WBC/HPF Greater than 50 HPF (0-3)
[2019-05-29 11:30] LABS: Bacteria/HPF 1+ HPF (None Seen)
[2019-05-29 12:40] LABS: Anion Gap 13 mmol/L (10-20); BUN (Urea Nitrogen) 19 mg/dL (9.8-20.1); Calc. Creatinine Clearance 0 mL/min (70-130); Calcium 9.9 mg/dL (7.8-10.44); Carbon Dioxide 30 mmol/L (23-31); Chloride 96 mmol/L (98-107); Estimated GFR-MDRD 60; Glucose 108 mg/dL (80-115); Potassium 4.2 mmol/L (3.5-5.1); Sodium 135 mmol/L (136-145)
--- NOTE | 2019-05-30 14:10 | EKG ---
Test Reason : Blood Pressure : / mmHG Vent. Rate : 098 BPM Atrial Rate : 079 BPM P-R Int : 168 ms QRS Dur : 086 ms QT Int : 360 ms P-R-T Axes : 066 080 087 degrees QTc Int : 459 ms Sinus rhythm with Premature supraventricular complexes Cannot rule out Anterior infarct , age undetermined Abnormal ECG When compared with ECG of 05-MAY-2019 09:48, Premature supraventricular complexes are now Present Minimal criteria for Anterior infarct are now Present T wave amplitude has increased in Inferior leads Confirmed by ANTHONY PEARSON, SEnmanuel ([id number]) on 05/30/2019 2:10:05 PM Referred By: DAVEY Confirmed By:DR. Salomón CRUZ MD
== END 2019-05-29 09:14 | disposition home or self-care (01) ==
LOC: LABBT 09:13
PROVIDERS: ATTEND Urology
DX: Z01.818 Encounter for other preprocedural examination (principal); C67.8 Malignant neoplasm of overlapping sites of bladder
CPT/HCPCS: 80048; 81001; 85027; 87086; 93005; 93010

== ENCOUNTER 2019-10-06 08:38 | Day surgery (SDC) | payer MEDICARE, BC ==
[2019-10-06 08:07] VITALS: BMI 31.8
[2019-10-06 09:01] LABS: #Eosinphils 0.2 thou/uL (0.0-0.7); #Lymphocytes 1.3 thou/uL (1.20-3.40); #Monocytes 1.1 thou/uL (0.11-0.59); %Basophils 0.2 % (0.0-1.0); %Eosinophils 2.6 % (0.0-10.0); %Lymphocytes 13.8 % (21.0-51.0); %Monocytes 11.2 % (0.0-10.0); %Neutrophils 72.2 % (42.0-75.0); Hemoglobin 11.2 g/dL (12.0-16.0); Mean Corpuscular HGB CONC 31.5 g/dL (32.0-36.0); Mean Corpuscular Hemoglobin 25.5 pg (27.0-31.0); Mean Corpuscular Volume 80.9 fL (78.0-98.0); Mean Platelet Volume 7.2 fL (7.4-10.4); Platelet Count 409 thou/uL (130-400); RBC Distribution Width 14.7 % (11.5-14.5); Red Blood Cell (RBC) Count 4.38 mill/uL (4.20-5.40); White Blood Cell (WBC) Count 9.6 thou/uL (4.8-10.8)
[2019-10-06 09:07] LABS: PTT 27.5 SEC (22.9-36.1)
[2019-10-06 09:08] LABS: Prothrombin Time 12.7 SEC (12.0-14.7)
[2019-10-06 10:12] VITALS: BP 123/74; TEMP 97.9
--- NOTE | 2019-10-06 11:46 | CT ---
PROCEDURE: CT Liver Perc Biopsy PROVIDED CLINICAL HISTORY: Right lung cancer and history of urinary bladder cancer. COMPARISON: CT examination obtained at [facility] on 09/22/2019 TECHNIQUE: The procedure including the risks and complications were explained to the patient, and informed conse nt was obtained. Patient was placed on the CT scan table in the supine position. Conscious sedation was performed with intravenous administration of fentanyl and Versed. The patient was monitored throu ghout the procedure and immediately postprocedure for approximately 30 minutes without complication. A limited noncontrasted CT scan was obtained through the right hepatic lobe with grid localizer in buzz. An area was marked and then meticulously prepped and draped in usual sterile fashion. The skin and subcutaneous tissues were infiltrated with buffered 1% lidocaine for local anesthesia at the inte nded puncture site. A small skin incision was made. A 17-gauge guide needle was advanced followed by axial noncontrasted CT images. This was repeated unt il the tip of needle was placed just within the lateral and peripheral aspect of the right hepatic lobe. A total of three 18-gauge core needle biopsy specimens were obtained utilizing coaxial techniqu e. Adequate tissue specimen was obtained according to initial pathology review of the specimens. The needle was removed. Hemostasis was achieved with direct pressure. Follow-up CT scan of the upper abdomen demonstrates no fluid or findings to suggest hematoma adjacent to the liver. Patient tolerated the procedure well and without immediate complication. Patient was transported to radiology nurses holding area for further monitoring prior to discharge. IMPRESSION: 1. Multiple hypodense metastatic lesions in the liver. 2. Technically successful percutaneous biopsy of a larger right hepatic lobe mass. Pathology is yaneth ntly pending.
--- NOTE | 2019-10-09 16:32 | CT ---
PROCEDURE: CT Liver Perc Biopsy PROVIDED CLINICAL HISTORY: Right lung cancer and history of urinary bladder cancer. COMPARISON: CT examination obtained at [facility] on 09/22/2019 TECHNIQUE: The procedure including the risks and complications were explained to the patient, and informed conse nt was obtained. Patient was placed on the CT scan table in the supine position. Conscious sedation was performed with intravenous administration of fentanyl and Versed. The patient was monitored throu ghout the procedure and immediately postprocedure for approximately 30 minutes without complication. A limited noncontrasted CT scan was obtained through the right hepatic lobe with grid localizer in buzz. An area was marked and then meticulously prepped and draped in usual sterile fashion. The skin and subcutaneous tissues were infiltrated with buffered 1% lidocaine for local anesthesia at the inte nded puncture site. A small skin incision was made. A 17-gauge guide needle was advanced followed by axial noncontrasted CT images. This was repeated unt il the tip of needle was placed just within the lateral and peripheral aspect of the right hepatic lobe. A total of three 18-gauge core needle biopsy specimens were obtained utilizing coaxial techniqu e. Adequate tissue specimen was obtained according to initial pathology review of the specimens. The needle was removed. Hemostasis was achieved with direct pressure. Follow-up CT scan of the upper abdomen demonstrates no fluid or findings to suggest hematoma adjacent to the liver. Patient tolerated the procedure well and without immediate complication. Patient was transported to radiology nurses holding area for further monitoring prior to discharge. IMPRESSION: 1. Multiple hypodense metastatic lesions in the liver. 2. Technically successful percutaneous biopsy of a larger right hepatic lobe mass. Pathology is yaneth salazar pending. Transcribed Date/Time: 10/09/2019 4:32 PM
== END 2019-10-06 14:00 | disposition home or self-care (01) ==
LOC: CT 08:38
PROVIDERS: ATTEND Internal Medicine Hematology & Oncology
PROC: 0FB13ZX Excision of Right Lobe Liver, Percutaneous Approach, Diagnostic (ICD-10-PCS; principal; 2019-10-06)
DX: C78.7 Secondary malignant neoplasm of liver and intrahepatic bile duct (principal); C34.31 Malignant neoplasm of lower lobe, right bronchus or lung; C67.0 Malignant neoplasm of trigone of bladder; J44.9 Chronic obstructive pulmonary disease, unspecified; E11.9 Type 2 diabetes mellitus without complications; I10 Essential (primary) hypertension; F41.9 Anxiety disorder, unspecified; F32.9 Major depressive disorder, single episode, unspecified; M19.90 Unspecified osteoarthritis, unspecified site; K21.9 Gastro-esophageal reflux disease without esophagitis; Z87.891 Personal history of nicotine dependence; Z79.899 Other long term (current) drug therapy; Z79.82 Long term (current) use of aspirin; Z79.84 Long term (current) use of oral hypoglycemic drugs; Z90.2 Acquired absence of lung [part of]
CPT/HCPCS: 36415; 47000; 77012; 85025; 85610; 85730; 88307; 88333; 88334

== ENCOUNTER 2019-12-27 09:06 | Day surgery (SDC) | payer MEDICARE, BC ==
[2019-12-27] MEDS ORDERED: diphenhydrAMINE 25 MG CAP PO SCH (09:30)
[2019-12-27] MEDS ORDERED: Acetaminophen 500 MG TAB PO SCH (09:30)
[2019-12-27] MEDS ORDERED: Sodium Chloride 0.9% 20 ML ONE (09:50)
[2019-12-27 14:56] VITALS: BP 128/66; TEMP 97.8
[2019-12-27 15:21] LABS: Anisocytosis SLIGHT = 6-15 cells (100X) (0-5/hpf); Band 39 % (5-11); Hemoglobin 7.5 g/dL (12.0-16.0); Lymphocytes 24 % (21-51); MDiff Complete? YES; Mean Corpuscular HGB CONC 35.4 g/dL (32.0-36.0); Mean Corpuscular Hemoglobin 31.2 pg (27.0-31.0); Monocytes 10 % (0-10); Neutrophil 25 % (42-75); Platelet Count 130 thou/uL (130-400); Platelet Morphology Comment Appears Adequate; Polychromasia SLIGHT = 2-3 cells (100X) (0-2/hpf); RBC Distribution Width 22.7 % (11.5-14.5); Reactive Lymphocytes 2 % (0-10); Red Blood Cell (RBC) Count 2.41 mill/uL (4.20-5.40); Tear Drops SLIGHT = 2-5 cells (100X) (0-1/hpf); White Blood Cell (WBC) Count 4.3 thou/uL (4.8-10.8)
== END 2019-12-27 14:56 | disposition home or self-care (01) ==
LOC: ONC/OP 09:06
PROVIDERS: ATTEND Internal Medicine Hematology & Oncology
PROC: 30233N1 Transfusion of Nonautologous Red Blood Cells into Peripheral Vein, Percutaneous Approach (ICD-10-PCS; principal; 2019-12-27)
DX: D64.9 Anemia, unspecified (principal); D69.6 Thrombocytopenia, unspecified
CPT/HCPCS: 36430; 85025; 86850; 86900; 86901; P9016; Q0163

== ENCOUNTER 2020-05-27 09:21 | Outpatient (CLI) | payer MEDICARE, BC ==
--- NOTE | 2020-05-27 10:27 | CT ---
EXAM: CT chest, abdomen, and pelvis with IV contrast: HISTORY: Neoplasm of lung. History of lung cancer and bladder cancer. Postsurgical changes of right lobectomy. 3 month follow-up evaluation after treatment. COMPARISON: CT abdomen and pelvis on 01/11/[address] thorax on 09/22/2019 FINDINGS: CT THORAX: Lungs: Postoperative changes related to right upper lobectomy are noted. No discrete pulmonary nodule or mass is identified. There is an eccentric filling defect in the left posterolateral aspect of the upper thoracic trachea probably related to secretions. Pleura: No pleural effusion. Lymph nodes: No enlarged lymph nodes are seen by CT size criteria. Mediastinum: Vascular calcifications are seen in the thoracic aorta and to a lesser extent involving the coronary arteries. Multiple hypodense nodules are seen in each lobe of the thyroid gland also present on prior exam. Mul tiple thyroid nodules were seen on a CT cervical spine on 06/07/2017. Chest wall: Postoperative changes related to left humeral head prosthesis are noted. There is severe right glenohumeral osteoarthropathy with a moderate size joint effusion which is mildly increased when compared to prior exam. CT ABDOMEN AND PELVIS: Liver: There are scattered hypodense lesions again seen in each lobe of the liver. Largest lesion in the posterior segment right hepatic lobe on the prior exam measured 2.6 cm x 2.3 cm. This lesion on current study measures 1.7 cm x 1.1 cm; there is now greater degree of subcapsular scarring at the le claudio of this lesion. The additional metastatic lesions seen throughout the liver have also decreased in size. The hypodense lesion seen in the anterior dome of the liver previously measuring 2.6 cm x 1. 5 cm now measures 1.9 cm x 1.1 cm. A few smaller hypodense lesions in the inferior aspect posterior segment right hepatic lobe have resolved. Gallbladder: Within normal limits. Pancreas: Within normal limits. Spleen: Within normal limits. Adrenal glands: A stable hypodense lesion is again seen in the left adrenal gland. Right adrenal glan d has a normal appearance. Kidneys: A stable hyperdense exophytic cystic lesion superior pole left kidney is again seen measurin g 2.7 cm. A few tiny subcentimeter too small to characterize hypodense lesions are again seen in each kidney. Urinary Bladder: Decompressed and obscured due to significant artifact in the pelvis due to bilateral total hip prostheses. Reproductive organs: Not well assessed due to artifact, but the uterus is small in size. Bowel: Evidence of colonic diverticulosis. Loops of small bowel are normal in caliber. Adenopathy:No enlarged lymph nodes are seen by CT size criteria within the abdomen or pelvis. Peritoneum: No free fluid or fluid collection is seen. No free intraperitoneal gas is identified. Abdominal wall: Fat-containing umbilical hernia is again seen. Osseous structures: Right convex scoliosis thoracolumbar spine with multilevel degenerative changes p resent. Postoperative changes left proximal humerus and each hip are present. No suspicious lytic or sclerotic osseous lesions are identified. IMPRESSION: 1. Continued interval improvement in metastatic disease involving the liver compared to prior studies . 2. Postoperative changes related to right upper lobectomy. 3. Stable left adrenal lesion. 4. Stable exophytic hyperdense cystic lesion left kidney. 5. Colonic diverticulosis.
[2020-05-27] MEDS ORDERED: Iopamidol-370 76% 500 ML 1 ML ONE (12:17)
== END 2020-05-27 09:22 | disposition home or self-care (01) ==
LOC: BICCT 09:21
PROVIDERS: ATTEND Internal Medicine Hematology & Oncology
DX: C34.31 Malignant neoplasm of lower lobe, right bronchus or lung (principal); C67.0 Malignant neoplasm of trigone of bladder; C22.7 Other specified carcinomas of liver; Z98.890 Other specified postprocedural states; E27.8 Other specified disorders of adrenal gland; N28.89 Other specified disorders of kidney and ureter; K57.30 Diverticulosis of large intestine without perforation or abscess without bleeding
CPT/HCPCS: 71260; 74177; Q9967

== ENCOUNTER 2020-09-09 07:27 | Outpatient (CLI) | payer MEDICARE, BC ==
[2020-09-09] MEDS ORDERED: Iopamidol-370 76% 500 ML 1 ML ONE (11:00)
== END 2020-09-09 07:28 | disposition home or self-care (01) ==
LOC: BICCT 07:27
PROVIDERS: ATTEND Internal Medicine Hematology & Oncology
DX: C34.31 Malignant neoplasm of lower lobe, right bronchus or lung (principal); C67.0 Malignant neoplasm of trigone of bladder; C78.7 Secondary malignant neoplasm of liver and intrahepatic bile duct; Z90.2 Acquired absence of lung [part of]; R91.1 Solitary pulmonary nodule; N28.1 Cyst of kidney, acquired; I25.10 Atherosclerotic heart disease of native coronary artery without angina pectoris; E07.89 Other specified disorders of thyroid; M41.9 Scoliosis, unspecified; M47.815 Spondylosis without myelopathy or radiculopathy, thoracolumbar region; Z98.890 Other specified postprocedural states; J90 Pleural effusion, not elsewhere classified; K76.9 Liver disease, unspecified
CPT/HCPCS: 71260; 74177; Q9967

== ENCOUNTER 2021-01-08 07:55 | Outpatient (CLI) | payer MEDICARE, BC ==
[2021-01-08] MEDS ORDERED: Iopamidol-370 76% 500 ML 1 ML ONE (09:05)
== END 2021-01-08 07:56 | disposition home or self-care (01) ==
LOC: BICCT 07:55
PROVIDERS: ATTEND Internal Medicine Hematology & Oncology
DX: C34.31 Malignant neoplasm of lower lobe, right bronchus or lung (principal); C67.0 Malignant neoplasm of trigone of bladder; R91.1 Solitary pulmonary nodule; N28.9 Disorder of kidney and ureter, unspecified; E04.2 Nontoxic multinodular goiter; K57.30 Diverticulosis of large intestine without perforation or abscess without bleeding; M19.011 Primary osteoarthritis, right shoulder; M25.411 Effusion, right shoulder; E27.8 Other specified disorders of adrenal gland
CPT/HCPCS: 71260; 74177; Q9967

== ENCOUNTER 2021-06-10 09:48 | Outpatient (CLI) | payer MEDICARE, BC | END 2021-06-10 09:49 | disposition home or self-care (01) | LOC: BICRAD 09:48 | PROVIDERS: ATTEND Nurse Practitioner Family | DX: R05.9 Cough, unspecified (principal) | CPT/HCPCS: 71046; U0003; U0005 ==

== ENCOUNTER 2021-07-15 08:52 | Outpatient (CLI) | payer MEDICARE, BC | END 2021-07-15 08:53 | disposition home or self-care (01) | LOC: PET 08:52 | PROVIDERS: ATTEND Internal Medicine Hematology & Oncology | DX: C34.31 Malignant neoplasm of lower lobe, right bronchus or lung (principal); C67.0 Malignant neoplasm of trigone of bladder | CPT/HCPCS: 78815; A9552 ==

== ENCOUNTER 2021-11-21 08:19 | Outpatient (CLI) | payer MEDICARE, BC | END 2021-11-21 08:20 | disposition home or self-care (01) | LOC: RAD 08:19 | PROVIDERS: ATTEND Internal Medicine Critical Care Medicine | DX: R06.00 Dyspnea, unspecified (principal) | CPT/HCPCS: 71046 ==

== ENCOUNTER 2022-01-08 09:30 | Outpatient (CLI) | payer MEDICARE, BC | END 2022-01-08 09:31 | disposition home or self-care (01) | LOC: PET 09:30 | PROVIDERS: ATTEND Internal Medicine Hematology & Oncology | DX: C34.31 Malignant neoplasm of lower lobe, right bronchus or lung (principal); C67.0 Malignant neoplasm of trigone of bladder; E87.1 Hypo-osmolality and hyponatremia; K62.89 Other specified diseases of anus and rectum | CPT/HCPCS: 78815; A9552 ==

== ENCOUNTER 2022-02-16 12:21 | Outpatient (CLI) | payer MEDICARE, BC | END 2022-02-16 12:22 | disposition home or self-care (01) | LOC: BICMAMMO 12:21 | PROVIDERS: ATTEND Family Medicine | DX: Z12.31 Encounter for screening mammogram for malignant neoplasm of breast (principal); Z85.118 Personal history of other malignant neoplasm of bronchus and lung; Z80.3 Family history of malignant neoplasm of breast | CPT/HCPCS: 77063; 77067 ==

== ENCOUNTER 2022-04-28 07:34 | Outpatient (CLI) | payer MEDICARE, BC ==
[2022-04-28] MEDS ORDERED: Iopamidol-370 76% 500 ML 1 ML ONE (09:34)
== END 2022-04-28 07:35 | disposition home or self-care (01) ==
LOC: BICCT 07:34
PROVIDERS: ATTEND Urology
DX: C67.1 Malignant neoplasm of dome of bladder (principal)
CPT/HCPCS: 74178; 82565; Q9967

== ENCOUNTER 2022-06-16 10:15 | Outpatient (CLI) | payer MEDICARE, BC | END 2022-06-16 10:16 | disposition home or self-care (01) | LOC: PET 10:15 | PROVIDERS: ATTEND Internal Medicine Hematology & Oncology | DX: C67.0 Malignant neoplasm of trigone of bladder (principal); C34.31 Malignant neoplasm of lower lobe, right bronchus or lung | CPT/HCPCS: 78815; A9552 ==

== ENCOUNTER 2023-02-17 10:24 | Outpatient (CLI) | payer MEDICARE, BC | END 2023-02-17 10:25 | disposition home or self-care (01) | LOC: BICMAMMO 10:24 | PROVIDERS: ATTEND Family Medicine | DX: Z12.31 Encounter for screening mammogram for malignant neoplasm of breast (principal); Z13.820 Encounter for screening for osteoporosis; N95.9 Unspecified menopausal and perimenopausal disorder; Z80.3 Family history of malignant neoplasm of breast; Z85.118 Personal history of other malignant neoplasm of bronchus and lung | CPT/HCPCS: 77063; 77067; 77080 ==

== ENCOUNTER 2023-06-03 12:14 | Outpatient (CLI) | payer MEDICARE, BC | END 2023-06-03 12:15 | disposition home or self-care (01) | LOC: BICRAD 12:14 | PROVIDERS: ATTEND Family Medicine | DX: J40 Bronchitis, not specified as acute or chronic (principal) | CPT/HCPCS: 71046 ==

== ENCOUNTER 2023-09-29 10:21 | Outpatient (CLI) | payer MEDICARE, BC | END 2023-09-29 10:22 | disposition home or self-care (01) | LOC: RAD 10:21 | PROVIDERS: ATTEND Internal Medicine Critical Care Medicine | DX: R06.00 Dyspnea, unspecified (principal) | CPT/HCPCS: 71046 ==

== ENCOUNTER 2024-01-05 10:15 | Outpatient (CLI) | payer MEDICARE | END 2024-01-05 10:16 | disposition home or self-care (01) | LOC: PET 10:15 | PROVIDERS: ATTEND Internal Medicine Hematology & Oncology | DX: C34.31 Malignant neoplasm of lower lobe, right bronchus or lung (principal); C67.0 Malignant neoplasm of trigone of bladder | CPT/HCPCS: 78815; A9552 ==

== ENCOUNTER 2025-02-13 09:30 | Outpatient (CLI) | payer MEDICARE | END 2025-02-13 09:31 | disposition home or self-care (01) | LOC: PET 09:30 | PROVIDERS: ATTEND Internal Medicine Hematology & Oncology | DX: C34.31 Malignant neoplasm of lower lobe, right bronchus or lung (principal); C67.0 Malignant neoplasm of trigone of bladder; E87.1 Hypo-osmolality and hyponatremia; D50.8 Other iron deficiency anemias; Z79.899 Other long term (current) drug therapy | CPT/HCPCS: 78815; A9552 ==